=== PATIENT | male | born 1960 | race Caucasian/White ===

== ENCOUNTER 2019-07-19 10:31 | Emergency (ER) | payer SELFPAY ==
[2019-07-19] MEDS ORDERED: Fentanyl 100 MCG/2 ML VIAL ONE (11:16)
[2019-07-19] MEDS ORDERED: Iopamidol 370 76% 100 ML VIAL ONE (11:32)
[2019-07-19 11:47] LABS: #Eosinphils 0.1 thou/uL (0.0-0.7); #Lymphocytes 1.2 thou/uL (1.20-3.40); #Monocytes 0.7 thou/uL (0.11-0.59); #Neutrophils 3.7 thou/uL (1.40-6.50); %Basophils 0.7 % (0.0-1.0); %Eosinophils 1.2 % (0.0-10.0); %Monocytes 12.5 % (0.0-10.0); %Neutrophils 64.6 % (42.0-75.0); Hemoglobin 13.3 g/dL (14.0-18.0); Mean Corpuscular HGB CONC 31.7 g/dL (32.0-36.0); Mean Corpuscular Hemoglobin 29.9 pg (27.0-31.0); Mean Corpuscular Volume 94.4 fL (78.0-98.0); Mean Platelet Volume 6.3 fL (7.4-10.4); Platelet Count 322 thou/uL (130-400); RBC Distribution Width 11.6 % (11.5-14.5); Red Blood Cell (RBC) Count 4.43 mill/uL (4.70-6.10); White Blood Cell (WBC) Count 5.6 thou/uL (4.8-10.8)
[2019-07-19 12:00] LABS: ALT (SGPT) 26 U/L (8-55); AST (SGOT) 29 U/L (5-34); Albumin 3.9 g/dL (3.5-5.0); Alkaline Phosphatase 73 U/L (40-110); Anion Gap 13 mmol/L (10-20); BUN (Urea Nitrogen) 17 mg/dL (8.4-25.7); Bilirubin, Total 1.4 mg/dL (0.2-1.2); Calc. Creatinine Clearance 0 mL/min (70-130); Calcium 8.7 mg/dL (7.8-10.44); Carbon Dioxide 22 mmol/L (22-29); Chloride 110 mmol/L (98-107); Estimated GFR-MDRD 77; Globulin 2.8 g/dL (2.4-3.5); Glucose 135 mg/dL (70-105); Lipase 32 U/L (8-78); Potassium 4.2 mmol/L (3.5-5.1); Protein, Total 6.7 g/dL (6.0-8.3); Sodium 141 mmol/L (136-145)
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
--- NOTE | 2019-07-19 12:06 | CT ---
CT cervical spine without contrast: 07/19/2019 COMPARISON: None available HISTORY: Trauma, injury, pain TECHNIQUE: Axial CT imaging at 2.5 mm intervals through the cervical spine without contrast. Coronal and sagittal reformatted imaging obtained. FINDINGS: There circumferential mucosal thickening involving the maxillary sinus on the right. A nond isplaced fracture involves the inferior and posterior wall of the right maxillary sinus. C1 ring appears intact. The occipital condyles, the dens, and the C1-2 articulation appears grossly unremarkable. The cranioc ervical junction and the atlantoaxial interspace appear unremarkable as does the cervicothoracic junction. Cervical vertebral body height and alignment appears within normal limits. No prevertebral soft tissue swelling. The visualized lung apices appear unremarkable. IMPRESSION: No acute fracture or dislocation is seen involving the cervical spine. A nondisplaced fra cture suspected involving the inferior aspect and posterior wall of the right maxillary sinus.
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
== END 2019-07-19 13:17 | disposition home or self-care (01) ==
LOC: MADERS 10:31
DX: S22.21XA Fracture of manubrium, initial encounter for closed fracture (principal); S02.40CA Maxillary fracture, right side, initial encounter for closed fracture; S16.1XXA Strain of muscle, fascia and tendon at neck level, initial encounter; S40.012A Contusion of left shoulder, initial encounter; F43.10 Post-traumatic stress disorder, unspecified; Z79.899 Other long term (current) drug therapy; V86.99XA Unspecified occupant of other special all-terrain or other off-road motor vehicle injured in nontraffic accident, initial encounter
CPT/HCPCS: 70450; 71260; 72125; 74177; 80053; 83690; 85025; 96374; J3010; L0120; Q9967

== ENCOUNTER 2021-05-09 09:14 | Emergency (ER) | payer SELFPAY ==
[2021-05-09] MEDS ORDERED: HYDROcodone/Acetaminophen 5/325 mg Tablet ONE (10:16)
== END 2021-05-09 10:25 | disposition home or self-care (01) ==
LOC: MADERS 09:14
DX: S76.011A Strain of muscle, fascia and tendon of right hip, initial encounter (principal)
CPT/HCPCS: 72170

== ENCOUNTER 2022-01-01 19:04 | Emergency (ER) | payer SELFPAY ==
[2022-01-01] MEDS ORDERED: Lidocaine 1%/Epinephrine 1:100K 10 ML VIAL ONE (19:19)
[2022-01-01] MEDS ORDERED: Lidocaine 1% (PF) 30 ML VIAL ONE (19:21)
[2022-01-01] MEDS ORDERED: Bacitracin 1 PK ONE (20:10)
== END 2022-01-01 20:18 | disposition home or self-care (01) ==
LOC: MADERS 19:04
DX: S61.341A Puncture wound with foreign body of left index finger with damage to nail, initial encounter (principal); H91.91 Unspecified hearing loss, right ear; W22.8XXA Striking against or struck by other objects, initial encounter
CPT/HCPCS: 64450; J2001

== ENCOUNTER 2024-04-22 20:30 | Emergency (ER) | payer SELFPAY ==
[~2024-04-22 20:30] MED LIST: Iopamidol 370 76% 100 ML VIAL ONE
[2024-04-22] MEDS ORDERED: Ibuprofen 600 MG TAB ONE (21:13)
[2024-04-22] MEDS ORDERED: Ondansetron ODT 4 MG TAB ONE ×2 (21:13→21:14)
[2024-04-22] MEDS ORDERED: Sodium Chloride 0.9% 500 ML ONE (21:14)
[2024-04-22] MEDS ORDERED: HYDROcodone/Acetaminophen 10/325 mg Tablet ONE (21:14)
[2024-04-22 21:15] LABS: #Basophils 0.1 thou/uL (0.0-0.2); #Eosinophils 0.6 thou/uL (0.0-0.7); #Lymphocytes 2.5 thou/uL (1.20-3.40); #Monocytes 0.7 thou/uL (0.11-0.59); #Neutrophils 4.3 thou/uL (1.40-6.50); %Basophils 1.1 % (0.0-1.0); %Eosinophils 7.1 % (0.0-10.0); %Lymphocytes 30.3 % (21.0-51.0); %Monocytes 8.6 % (0.0-10.0); %Neutrophils 52.9 % (42.0-75.0); Hematocrit 42.6 % (42.0-52.0); Hemoglobin 13.7 g/dL (14.0-18.0); Mean Corpuscular HGB CONC 32.1 g/dL (32.0-36.0); Mean Corpuscular Hemoglobin 29.8 pg (27.0-31.0); Mean Corpuscular Volume 92.8 fl (78.0-98.0); Mean Platelet Volume 7.2 fL (7.4-10.4); Platelet Count 349 10x3/uL (130-400); RBC Distribution Width 12.1 % (11.5-14.5); Red Blood Cell (RBC) Count 4.59 mill/uL (4.70-6.10); White Blood Cell (WBC) Count 8.1 10x3/uL (4.8-10.8)
[2024-04-22 21:35] LABS: ALT (SGPT) 16 U/L (8-55); AST (SGOT) 18 U/L (5-34); Albumin 4.4 g/dL (3.4-4.8); Alkaline Phosphatase 69 U/L (40-110); Anion Gap 12 mmol/L (10-20); BUN (Urea Nitrogen) 22 mg/dL (8.4-25.7); Bilirubin, Total 1.1 mg/dL (0.2-1.2); Calc. Creatinine Clearance 0 mL/min (70-130); Calcium 9.2 mg/dL (7.8-10.44); Carbon Dioxide 24 mmol/L (23-31); Chloride 107 mmol/L (98-107); Estimated GFR 68; Glucose 98 mg/dL (80-115); Potassium 3.9 mmol/L (3.5-5.1); Protein, Total 7.4 g/dL (5.8-8.1); Sodium 139 mmol/L (136-145)
[2024-04-22 21:36] LABS: Troponin I Less than 0.010 ng/mL (< 0.028)
== END 2024-04-22 23:10 | disposition home or self-care (01) ==
LOC: MADERS 20:30
DX: S20.212A Contusion of left front wall of thorax, initial encounter (principal); W22.8XXA Striking against or struck by other objects, initial encounter
CPT/HCPCS: 70450; 71260; 72125; 74177; 80053; 83605; 84484; 85025; J7030; Q0162; Q9967

== ENCOUNTER 2025-02-12 12:46 | Emergency (ER) | payer SELFPAY ==
[2025-02-12] MEDS ORDERED: Ketorolac Tromethamine 30 MG (1 mL) VIAL ONE (13:14)
[2025-02-12] MEDS ORDERED: Oxymetazoline HCl 0.05% (30 ML BOT) ONE (13:14)
== END 2025-02-12 14:20 | disposition home or self-care (01) ==
LOC: MADERS 12:46
DX: U07.1 COVID-19 (principal); J06.9 Acute upper respiratory infection, unspecified; B97.89 Other viral agents as the cause of diseases classified elsewhere
CPT/HCPCS: 87426; 96372; 99283; J1885